=== PATIENT | male | born 1945 | race Caucasian/White ===

== ENCOUNTER → 2016-10-05 | Outpatient (CLI) | payer OTHER ==
[~2016-10-05] MED LIST: IBUPROFEN400 MG PO; LEVAQUIN PO; SEE BELOW; SYNTHROID PO; TYLENOL EXTRA500 M1 PO
--- NOTE | ~2016-10-05 | MR17 ---
[facility] A Service of [facility] / [facility] RADIOLOGY TEXT RESULTS PATIENT: CONNIE ROBLES LOCATION: [facility] : 45 UNIT #: [id number] AGE: [address]: ETTA GRIFFIN APRN SEX: M ORDER DR: [id number] [facility] [address] [place], [place] [address] [id number] O MR#: [id number] Acc #: [id number] NAME: CONNIE ROBLES : 1945 SEX: M STUDY DATE/TIME: 10/05/2016 10:19 UNIT: [facility] ROOM: STUDY DESCRIPTION: MR Brain WWo Contrast Attending Physician: Etta Griffin M.D. Referring Physician: Etta Griffin M.D. Ordering Physician: Etta Griffin M.D. Primary Care Physician: Generic Doctor Not In System MRI CENTER REPORT This report is preliminary unless electronic signature is present. EXAM MRI of the pituitary with and without contrast DATE OF EXAMINATION 10/05/2016 COMPARISON Previous MRI dated 10/02/2015 HISTORY Routine follow up of known pituitary tumor. FINDINGS There is stable persistent leftward stalk deviation. There is no change in the area of residual soft tissue and enhancement when compared to the prior study. Soft tissue intensity material measures about 2.0 cm cranial caudally by about 1.6 cm mediolaterally and is stable. No new mass or mass effect is seen. It measures about 1.9 cm in anterior to posterior dimension, also unchanged. Adjacent brain parenchyma is stable in appearance. The optic chiasm and suprasellar regions remain normal. IMPRESSION No interval change since postoperative exam of 10/02/2015. No change in dimensions of residual tissue, degree or extent of enhancement, stalk deviation or other observable change. Dictated by... Vinnie Hinson M.D. THIS IS AN ELECTRONICALLY VERIFIED REPORT Vinnie Hinson M.D. at 10/07/2016 5:05 PM LUCIEN/destin [facility] A Service of [facility] RADIOLOGY TEXT RESULTS PATIENT: CONNIE ROBLES [facility] UNIT #: [id number] AGE: [address]: ETTA GRIFFIN APRN SEX: M ORDER DR: TD: 10/05/2016 16:07 JOB #: [id number] MRI CENTER REPORT Page 1 of 1 COPY
[2016-10-05 10:20] LABS: POC - CREATININE 0.81 mg/dL (0.64-1.27); POC - GFR >60.0 mL/min (>60)
== END | disposition home or self-care (01) ==
LOC: CMRI 09:20
DX: D35.2 Benign neoplasm of pituitary gland (principal); Z98.890 Other specified postprocedural states
CPT/HCPCS: 70553; 82565; A9577